=== PATIENT | female | born 1970 | race African-American/Black ===

== ENCOUNTER 2021-02-01 18:20 | Emergency (ER) | payer OTHER ==
[~2021-02-01] VITALS: Ht 162.6 cm; Wt 86.2 kg
[2021-02-01 18:59] LABS: ABSOLUTE NEUTROPHILS 7.3 thou/uL (1.4-8.2); BASOPHILS 0.6 % (0.0-2.0); EOSINOPHILS 1.2 % (0.0-3.0); HEMATOCRIT 39.9 % (37.0-47.0); HEMOGLOBIN 13.4 gm/dL (12.0-15.0); LYMPHOCYTES 18.6 % (24.0-44.0); MCH 30.6 pg (26.0-34.0); MCHC 33.6 g/dL (28.0-37.0); MCV 91.1 fL (80.0-100.0); MONOCYTES 5.3 % (1.0-8.0); PLATELET COUNT 314 thou/uL (150-400); POLYS 74.3 % (36.0-66.0); RBC 4.38 mil/uL (4.20-5.00); RDW 13.6 % (10.5-14.5); WBC 9.8 thou/uL (4.0-11.0)
[2021-02-01 19:09] LABS: ANION GAP 9 mmol/L (7-16); BUN 10 mg/dL (7-18); CALCIUM 8.5 mg/dL (8.5-10.1); CHLORIDE 106 mmol/L (98-107); CO2 24 mmol/L (21-32); CREATININE 0.8 mg/dL (0.6-1.0); GLUCOSE 118 mg/dL (74-106); POTASSIUM 3.5 mmol/L (3.5-5.1); SODIUM 139 mmol/L (136-145)
[2021-02-01 19:20] LABS: ALBUMIN 3.8 g/dL (3.4-5.0); SGOT 10 U/L (15-37); SGPT 14 U/L (14-59); TOTAL BILIRUBIN 0.7 mg/dL (0.2-1.0); TOTAL PROTEIN 7.8 g/dL (6.4-8.2); TROPONIN-I <0.06 ng/mL (<0.06)
[2021-02-01] MEDS ORDERED: AUGMENTIN 875-1 EACH PO (20:55)
[2021-02-01 21:19] VITALS: BP 138/75
--- NOTE | 2021-02-02 07:13 | EKG ---
[place] [address] [facility] [place] [address] ELECTROCARDIOGRAM REPORT Name: AMALIA PACE [facility] [id number] Admission: 02/01/21 Attend Phys: Discharge: 02/01/21 Date of : 68 Report #: [id number] [facility] ED Test Date: 2021-02-01 Test Time: 18:31:56 Pat Name: AMALIA PACE Department: Room: Gender: F Biometric Fingerprinting Technician: ALEXA RICHARDSON : 1970 Requested By: Janes Marie Order Number: [id number] MD: Uziel Jackson Measurements Intervals [place] Rate: 75 P: 16 [place]: 126 QRS: 45 QRSD: 92 T: 1 QT: 374 QTc: 418 Interpretive Statements Sinus rhythm Baseline wander in lead(s) II,III,aVF No previous ECG available for comparison Electronically Signed On 02-02-2021 7:13:31 CDT by Uziel Jackson [email or web address] <ELECTRONICALLY SIGNED> By: Uziel Jackson MD, [facility] 02/02/21 0713 30 1831 Uziel Jackson MD, FACC /EPI
== END 2021-02-01 21:20 | disposition home or self-care (01) ==
LOC: ER 18:20
PROVIDERS: Emergency Medicine
DX: J18.9 Pneumonia, unspecified organism (principal)